=== PATIENT | female | born 2005 | race Caucasian/White ===

== ENCOUNTER 2025-07-28 17:09 | Emergency (ER) | payer SELFPAY ==
[2025-07-28 17:22] VITALS: BP 116/66; PULSE 70; RESP 18; TEMP 36.9; O2SAT 99
[2025-07-28 17:54] LABS: EDCOVIDSCREEN Negative (Negative); EDINFLUASCREEN Negative (Negative); EDINFLUBSCREEN Negative (Negative); EDSTREPNEGPOS1 Positive (Negative)
--- NOTE | 2025-07-28 17:58 | ED.URI ---
HPI - URI/Sore Throat General Chief Complaint: Upper Respiratory Infection Stated Complaint: migraine Time Seen by Provider: 07/28/25 17:40 Source: patient and RN notes reviewed Limitations: no limitations History of Present Illness HPI Narrative: Patient presents today complaining of headache, chills, and decreased appetite since yesterday. Denies cough, sore throat, nasal congestion. Currently rates her headache 6/10 and has tried Aleve without improvement. Reports multiple sick contacts recently. Related Data Allergies Allergy/AdvReac Type Severity Reaction Status Date / Time No Known Allergies Allergy Verified 07/28/25 17:39 PMFSH Comments At time of signature, I have reviewed and agree with nursing past medical, surgical, social and family history unless otherwise noted. Please see nursing chart for further information. There is no relevant family history pertinent to the presenting complaint Exam Narrative: GENERAL: Mildly ill-appearing, well-nourished, and in no acute distress. HEAD: Normocephalic, atraumatic. EYES: EOMI. No redness or drainage. Conjunctivae normal. ENT: Mucous membranes pink and moist. Nares mildly congested. No rhinorrhea. TMs normal bilaterally. Throat normal. Uvula midline. NECK: Normal AROM. Supple. No lymphadenopathy. CHEST: No respiratory distress. Clear to auscultation. HEART: Regular rate and rhythm. No murmur appreciated. EXTREMITIES: Normal range of motion. No edema. SKIN: Warm, dry, no rash. Capillary refill normal. Normal skin turgor. NEURO: No focal deficits. Alert and oriented x3. Gait steady. PSYCH: Normal affect. No signs of depression or anxiety. Course Course Level of Care: Express Care Visit Vital Signs Vital signs: Vital Signs Temperature 98.5 F 07/28/25 17:22 Pulse Rate 70 07/28/25 17:22 Respiratory Rate 18 07/28/25 17:22 Blood Pressure 116/66 07/28/25 17:22 Pulse Oximetry 99 07/28/25 17:22 Oxygen Delivery Room Air 07/28/25 17:22 Temperature 98.5 F 07/28/25 17:22 Pulse Rate 70 07/28/25 17:22 Respiratory Rate 18 07/28/25 17:22 Blood Pressure 116/66 07/28/25 17:22 Pulse Oximetry 99 07/28/25 17:22 Oxygen Delivery Room Air 07/28/25 17:22 Reviewed MDM - URI/Sore Throat MDM Narrative Medical decision making narrative: 19-year-old female patient presents today with headache, chills, decreased appetite since yesterday. Denies any upper respiratory symptoms. Reports multiple sick contacts. Has taken Aleve without improvement. Upon exam, patient has some mild nasal congestion but is otherwise negative. Influenza and COVID negative. Rapid strep positive. Prescription for amoxicillin sent to pharmacy. Vital signs stable. Anticipatory guidance given. Differential Diagnosis Differential diagnosis: Likely upper respiratory infection, viral infection, influenza and other (Strep throat, COVID-19) Lab Data Attestation: I reviewed the patient's lab results. Labs: Lab Results 07/28/25 Range/Units 17:52 POC Influenza A Ag Negative (Negative) POC Influenza B Ag Negative (Negative) POC SARS CoV-2 Ag Negative (Negative) POC Grp A Strep Screen Positive (Negative) Critical Care Time Critical Care Time Critical Care Time: No Discharge Plan Discharge Clinical Impression: Strep throat Patient Disposition: Home Condition: Stable Instructions: Strep Throat (DC) Additional Instructions: You have tested positive for strep throat. Please take the amoxicillin as prescribed until gone. You will be contagious for 24 hours after starting the medication. Take Tylenol or Ibuprofen for pain or fever, if able. Rest and stay hydrated. Follow up with your PCP in 3 days if symptoms are not improving. Go to the ER immediately if you develops worsening symptoms such as shortness of breath, difficulty swallowing. Patient Language: [place] Prescriptions: New amoxicillin 875 mg tablet 875 mg PO Q12H 10 Days Qty: 20 0RF Follow-up/Referrals: PHYSICIAN,MECHANICAL SYSTEM TECHNICIAN [Primary Care Provider, Internal Medicine] Stand Alone Forms: Work/School Release IP Time of Disposition: 18:07
== END 2025-07-28 18:10 | disposition home or self-care (01) ==
PROVIDERS: Emergency Provider Nurse Practitioner
DX: J02.0 Streptococcal pharyngitis (principal); Z20.822 Contact with and (suspected) exposure to COVID-19
CPT/HCPCS: 87426; 87804; 87880; 99203; G0463